=== PATIENT | male | born 1975 | race Caucasian/White ===

== ENCOUNTER 2019-11-23 08:07 | Day surgery (SDC) | payer BC ==
[~2019-11-23 08:07] MED LIST: Lactated Ringers 1,000 ML IV SCH
--- NOTE | 2019-11-23 08:33 | PCM.PREANE ---
Preanesthetic Assessment - Anesthesia/Transfusion/Family Hx Anesthesia History: Prior Anesthesia Without Reaction (dental extraction only) Family History of Anesthesia Reaction: No Transfusion History: No Prior Transfusion(s) - Review of Systems General: No Symptoms Pulmonary: No Symptoms Cardiovascular: No Symptoms Gastrointestinal: No Symptoms Neurological: No Symptoms Other: Reports: None - Physical Assessment NPO Status Date: 11/22/19 Vital Signs: Last Vital Signs Temp 97.7 F 11/23/19 08:26 Pulse 68 11/23/19 08:26 Resp 14 11/23/19 08:26 BP 148/89 H 11/23/19 08:26 Pulse Ox 98 11/23/19 08:26 Height: 6 ft 2 in Weight: 105.233 kg ASA Class: 1 Mental Status: Alert & Oriented x3 Airway Class: Mallampati = 1 Dentition: Reports: Normal Dentition ROM/Head Extension: Full Lungs: Clear to Auscultation, Normal Respiratory Effort Cardiovascular: Regular Rate, Regular Rhythm - Allergies Allergies/Adverse Reactions: Allergies Allergy/AdvReac Type Severity Reaction Status Date / Time hydrocodone Allergy Intermediate Nausea and Verified 11/23/19 08:24 Vomiting tramadol Allergy Nausea and Verified 11/23/19 08:23 Vomiting - Blood Blood Available: No - Anesthesia Plan Pre-Op Medication Ordered: None - Acknowledgements Anesthesia Type Planned: General Anesthesia Pt an Appropriate Candidate for the Planned Anesthesia: Yes Alternatives and Risks of Anesthesia Discussed w Pt/Guardian: Yes Pt/Guardian Understands and Agrees with Anesthesia Plan: Yes Additional Comments: PMH: grd PLAN: ga/lma PreAnesthesia Questionnaire HEENT History: Reports: Other (See Below) Other HEENT History: wears glasses Cardiovascular History: Reports: Other (See Below) Other Cardiovascular History: says he tends to run a little high on his blood pressure- does not take any medication Gastrointestinal History: Reports: Hiatal Hernia, Other (See Below) Other Gastrointestinal History: occasional heartburn- takes OTC meds Genitourinary History: Reports: Renal Calculus Other Genitourinary History: has passed kidney stones Psychiatric History: Reports: Anxiety - Past Surgical History Head Surgeries/Procedures: Reports: None HEENT Surgical History: Reports: Oral Surgery Other HEENT Surgeries/Procedures: tooth extraction Male Surgical History: Reports: Vasectomy - SUBSTANCE USE Smoking Status *Q: Never Smoker Recreational Drug Use History: No - HOME MEDS Home Medications: Home Meds Zolpidem [Ambien] 10 mg PO BEDTIME 11/18/19 [History] - CURRENT (IN HOUSE) MEDS Current Meds: Current Medications Lactated Ringer's (Ringers, Lactated) 1,000 mls @ 125 mls/hr IV ASDIRECTED [facility] Last Admin: 11/23/19 08:31 Dose: 125 mls/hr
[2019-11-23] MEDS ORDERED: fentaNYL 100 MCG/2 ML SDV ONE (09:25)
[2019-11-23] MEDS ORDERED: Midazolam 1 MG/ML 2 ML SDV ONE (09:25)
[2019-11-23] MEDS ORDERED: Propofol 200 MG/20 ML SDV ONE (09:25)
[2019-11-23] MEDS ORDERED: Ondansetron 4 MG/2 ML SDV ONE (09:27)
[2019-11-23] MEDS ORDERED: Glycopyrrolate 0.2 MG/ML SDV ONE (09:27)
[2019-11-23] MEDS ORDERED: Lidocaine 2% 5 ML SDV ONE (09:27)
[2019-11-23] MEDS ORDERED: Ketorolac 30 MG/ML SDV ONE (09:27)
[2019-11-23] MEDS ORDERED: Lidocaine 1% 20 ML MDV ONE (09:31)
[2019-11-23] MEDS ORDERED: Bupivacaine 0.5% 30 ML SDV ONE (09:31)
[2019-11-23] MEDS ORDERED: Morphine 10 MG/ML Syringe IVPUSH PRN (10:38)
--- NOTE | 2019-11-23 10:40 | PCM.OPNOTE ---
- General Post-Op/Procedure Note Date of Surgery/Procedure: 11/23/19 Operative Procedure(s): Excision left areolar mass Pre Op Diagnosis: Left areolar mass Post-Op Diagnosis: Same Anesthesia Technique: General LMA (ASA I) Primary Surgeon: Nura Woods Fluid Replacement, Intraop: 600 EBL in mLs: 5 Condition: Good Free Text/Narrative:: DICTATION [id number] CPT CODE 37385
[2019-11-23] MEDS ORDERED: Lactated Ringers 1,000 ML IV SCH (10:45)
--- NOTE | 2019-11-23 11:29 | PCM48HPAN ---
Post Anesthesia Note - EVALUATION WITHIN 48HRS OF ANESTHETIC Vital Signs in Normal Range: Yes Patient Participated in Evaluation: Yes Respiratory Function Stable: Yes Airway Patent: Yes Cardiovascular Function Stable: Yes Hydration Status Stable: Yes Pain Control Satisfactory: Yes Nausea and Vomiting Control Satisfactory: Yes Mental Status Recovered: Yes Vital Signs: Last Vital Signs Temp 97.3 F 11/23/19 10:30 Pulse 69 11/23/19 10:45 Resp 10 L 11/23/19 10:45 BP 119/77 11/23/19 10:45 Pulse Ox 95 11/23/19 10:45
--- NOTE | 2019-11-23 11:29 | PCM.POSTAN ---
POST ANESTHESIA ASSESSMENT - MENTAL STATUS Mental Status: Alert, Oriented - VITAL SIGNS Vital Signs: Last Vital Signs Temp 97.3 F 11/23/19 10:30 Pulse 69 11/23/19 10:45 Resp 10 L 11/23/19 10:45 BP 119/77 11/23/19 10:45 Pulse Ox 95 11/23/19 10:45 - RESPIRATORY Respiratory Status: Respiratory Rate WNL, Airway Patent, O2 Saturation Stable - CARDIOVASCULAR CV Status: Pulse Rate WNL, Blood Pressure Stable - GASTROINTESTINAL GI Status: No Symptoms - POST OP HYDRATION Hydration Status: Adequate & Stable
--- NOTE | 2019-11-23 16:33 | OR ---
SURGEON: Nura Woods M.D. DATE OF PROCEDURE: 11/23/2019 OPERATION PERFORMED: Excision of left areolar mass. PRIMARY SURGEON: Nura Woods MD. ANESTHESIA: General LMA. PREOPERATIVE DIAGNOSIS: Left areolar mass with cutaneous changes. POSTOPERATIVE DIAGNOSIS: Left areolar mass with cutaneous changes. ESTIMATED BLOOD LOSS: 5 mL. INTRAOPERATIVE FLUID REPLACEMENT: 600 mL of crystalloid. DESCRIPTION OF PROCEDURE: The patient was taken to the operating room and placed on the operating table in the supine position. The surgical site had been marked prior to the patient entering the operating room. Following satisfactory attainment of general anesthesia with placement of an LMA, the left chest was prepped with Betadine solution and sterile drapes were applied. The skin around the left nipple- areolar complex was infiltrated with 0.5% Marcaine solution. Elliptical excision of the mass was carried out with care taken to preserve part of the areola. A 0 silk suture was placed at the superior margin of the specimen. Once the specimen was completely removed, this was placed in formalin solution. Bleeding sites were electrocoagulated. The wound was then closed with interrupted 3-0 nylon sutures. One suture was placed under the nipple to approximate that to the skin without going through the nipple itself. The surgical site was then dressed with a sterile Tegaderm pad. Sponge, needle, and instrument counts were all correct. The patient tolerated the procedure well and was taken to recovery room in stable condition. MARCIA / MEGHAN /[id number]
== END 2019-11-23 12:11 | disposition home or self-care (01) ==
LOC: MW.SDS 08:07
PROVIDERS: ATTEND Surgery
DX: L30.8 Other specified dermatitis (principal); L85.9 Epidermal thickening, unspecified; F41.9 Anxiety disorder, unspecified; K21.9 Gastro-esophageal reflux disease without esophagitis
CPT/HCPCS: 19120; 88307; 88312; J1885; J2001; J2250; J2405; J2704; J3010; J3490; J7120; 00400